=== PATIENT | female | born 1990 | race Two or more races ===

== ENCOUNTER 2022-03-14 19:09 | Emergency (ER) | payer SELFPAY ==
[~2022-03-14] VITALS: Ht 147.3 cm; Wt 75.0 kg
[2022-03-14] MEDS ORDERED: CEPH-510 PO (20:45)
[2022-03-14 20:52] VITALS: BP 128/28
== END 2022-03-14 20:56 | disposition home or self-care (01) ==
LOC: ER 19:11
DX: L03.114 Cellulitis of left upper limb (principal); Z90.89 Acquired absence of other organs; Z90.49 Acquired absence of other specified parts of digestive tract

== ENCOUNTER 2022-04-15 00:06 | Emergency (ER) | payer MEDICAID ==
[~2022-04-15] VITALS: Ht 147.3 cm; Wt 76.8 kg
[~2022-04-15 00:06] MED LIST: CEPH-510 PO
[2022-04-15] MEDS ORDERED: ACETAMINOPHEN 500 MG TAB PO ONE (00:45)
[2022-04-15 01:00] LABS: Basophils # (auto) 0 10 ^3/uL (0-0.2); Basophils % (auto) 0.7 % (0.0-2.0); Eosinophils # (auto) 0 10 ^3/uL (0-0.8); Eosinophils % (auto) 0.5 % (0.0-7.0); Hematocrit 43.1 % (36.0-46.0); Hemoglobin 14.2 g/dL (12.2-16.2); Lymphocytes # (auto) 0.7 10 ^3/uL (0.4-5.4); Lymphocytes % (auto) 15.7 % (10.0-50.0); Mean Corpuscular Hemoglobin 29.3 pg (28.0-32.0); Mean Corpuscular Hgb Conc. 32.8 g/dL (32.0-36.0); Mean Corpuscular Volume 89.3 fL (80.0-100.0); Monocytes # (auto) 0.9 10 ^3/uL (0-1.3); Neutrophils # (auto) 2.7 10 ^3/uL (1.6-8.6); Neutrophils % (auto) 62.6 % (37.0-80.0); Nucleated Red Blood Cells % 0.1 %; Red Blood Cells 4.83 10^6/uL (4.0-5.20); Red Cell Distribution Width 13.4 % (11.8-14.3); White Blood Cell 4.3 10^3/uL (4.4-10.8)
[2022-04-15 01:25] LABS: Monocytes % (auto) 20.5 % (0.0-12.0)
[2022-04-15 01:37] LABS: BUN/Creatinine Ratio 14.5; Calcium 8.7 mg/dL (8.5-10.1); Potassium 4.1 mmol/L (3.5-5.1)
[2022-04-15 01:40] LABS: Bilirubin, Total 0.3 mg/dL (0.2-1.0); Total Protein 7.6 g/dL (6.4-8.2)
[2022-04-15 05:38] VITALS: BP 132/83
[2022-04-15] MEDS ORDERED: PRED20TA2 PO (05:42)
[2022-04-15] MEDS ORDERED: AZIT250T9 PO (05:42)
[2022-04-15] MEDS ORDERED: ALBUAER3 IN (05:42)
[2022-04-15] MEDS ORDERED: AZITHROMYCIN 250 MG TAB PO ONE (05:45)
[2022-04-15] MEDS ORDERED: DexAMETHasone SOD PHOS 10MG/1ML VIAL INJ IM ONE (05:45)
== END 2022-04-15 06:05 | disposition home or self-care (01) ==
LOC: ER 00:06
DX: U07.1 COVID-19 (principal); J06.9 Acute upper respiratory infection, unspecified; R07.89 Other chest pain; Z90.49 Acquired absence of other specified parts of digestive tract
CPT/HCPCS: 36415; 71045; 80053; 84484; 85025; 87426; 87804; 93005; 96372; 99285; J1100

== ENCOUNTER 2023-06-12 13:47 | Emergency (ER) | payer SELFPAY ==
[~2023-06-12] VITALS: Ht 147.3 cm; Wt 72.0 kg
[~2023-06-12 13:47] MED LIST changes: +ALBUAER3 IN; +AZIT-43 PO; +PRED20TA2 PO
[2023-06-12 15:08] LABS: Urine Bacteria FEW /hpf (None Seen); Urine Blood Negative /uL (Negative); Urine Clarity Clear (Clear); Urine Color Yellow (Yellow); Urine Mucus FEW (None Seen); Urine Protein, UAD TRACE (Negative); Urine Specific Gravity 1.017 (1.001-1.035); Urine Urobilinogen Normal (Negative); Urine WBC 21 /hpf (0 - 5); Urine pH 6.5 (5.0-8.0)
[2023-06-12 15:42] VITALS: BP 125/84; PULSE 112; RESP 20; TEMP 97.8; O2SAT 96
[2023-06-12] MEDS ORDERED: KETOROLAC TROMETH 30 MG/ML 1ML VIAL IM ONE (16:15)
[2023-06-12] MEDS ORDERED: IBUP1TAB5 PO (17:09)
== END 2023-06-12 17:21 | disposition home or self-care (01) ==
LOC: ER 13:47
DX: N12 Tubulo-interstitial nephritis, not specified as acute or chronic (principal); F41.9 Anxiety disorder, unspecified; Z98.890 Other specified postprocedural states; Z79.899 Other long term (current) drug therapy
CPT/HCPCS: 81001; 96372; 99283; J1885

== ENCOUNTER 2024-01-21 09:37 | Emergency (ER) | payer MEDICAID, OTHER ==
[~2024-01-21] VITALS: Ht 147.3 cm; Wt 79.4 kg
[~2024-01-21 09:37] MED LIST changes: +IBUP1TAB5 PO
[2024-01-21 10:32] VITALS: BP 127/78; PULSE 78; RESP 17; TEMP 98.7; O2SAT 97
[2024-01-21 10:53] LABS: Urine Bacteria FEW /hpf (None Seen); Urine Blood 1+ /uL (Negative); Urine Clarity Clear (Clear); Urine Color Yellow (Yellow); Urine Mucus FEW (None Seen); Urine Protein, UAD TRACE (Negative); Urine Specific Gravity 1.027 (1.001-1.035); Urine Urobilinogen Normal (Negative); Urine WBC 2 /hpf (0 - 5); Urine pH 5.5 (5.0-9.0)
[2024-01-21] MEDS: KETOROLAC TROMETH 60MG/2ML VIAL IM ONE (12:14)
[2024-01-21] MEDS ORDERED: IBUP-1456 PO (12:32)
[2024-01-21] MEDS ORDERED: CIPR-173 PO (12:32)
== END 2024-01-21 12:43 | disposition home or self-care (01) ==
LOC: ER 09:37
DX: J06.9 Acute upper respiratory infection, unspecified (principal); Z79.1 Long term (current) use of non-steroidal anti-inflammatories (NSAID); Z79.84 Long term (current) use of oral hypoglycemic drugs; Z79.899 Other long term (current) drug therapy; Z90.49 Acquired absence of other specified parts of digestive tract
CPT/HCPCS: 74176; 81001; 81025; 96372; 99285; J1885